=== PATIENT | female | born 1975 | race Caucasian/White ===

== ENCOUNTER 2016-08-17 14:14 | Emergency (ER) | payer SELFPAY ==
[2016-08-17] MEDS ORDERED: 0.9 % SODIUM CHLORIDE 1,000 ML BAG IV ONE (14:43)
[2016-08-17] MEDS ORDERED: ONDANSETRON HCL IV 4 MG/2 ML VIAL IV ONE (14:43)
[2016-08-17 15:01] LABS: BASO % 0.2 % (0-6); EOS % 3.6 % (0-6); GRAN % 74.4 % (47-80); HEMOGLOBIN 12.8 gm/dl (11.6-16.0); LYMPH % 17.7 % (16-45); MEAN CELL VOLUME 88.4 fl (81-97); MEAN CORPUSCULAR HEMOGLOBIN 29.8 pg (27-33); MEAN CORPUSCULAR HGB CONC 33.7 g/dl (32-36); MEAN PLATELET VOLUME 9.7 fl (7.4-10.4); MONO % 4.1 % (0-9); PLATELET COUNT 316 K/uL (130-400); RED CELL DISTRIBUTION WIDTH 12.7 % (11.5-14.5); WHITE BLOOD COUNT W/O DIFF 8.4 K/uL (4.2-12.2)
[2016-08-17] MEDS ORDERED: IPRATROPIUM/ALBUTEROL (0.5MG/3MG) NEB INH ONE (15:08)
[2016-08-17 15:11] LABS: ALB/GLOB RATIO 1.5 (1.1-1.8); ALBUMIN 4.3 gm/dL (3.5-5.0); ALKALINE PHOSPHATASE 55 U/L (38-126); ALT/SGPT 26 U/L (9-52); ANION GAP 14.6 (7-16); AST/SGOT 26 U/L (14-36); BILIRUBIN,TOTAL 0.45 mg/dL (0.2-1.3); BLOOD UREA NITROGEN 13 mg/dL (7-17); CARBON DIOXIDE 22.4 mmol/L (22-30); CREATININE 0.6 mg/dL (0.52-1.04); EST GLOMERULAR FILTRATION RATE > 60 ml/min; GLUCOSE,RANDOM 93 mg/dL (70-110); LIPASE 20 U/L (23-300); TOTAL PROTEIN 7.2 gm/dL (6.3-8.2)
--- NOTE | 2016-08-17 15:14 | Emergency Department Record ---
History of Present Illness - General Chief Complaint: Abdominal Pain Stated Complaint: VOMITING/BLOOD STOOL Time Seen by Provider: 08/17/16 14:42 Source: Patient, Family Mode of Arrival: Ambulatory Limitations: No limitations - History of Present Illness Initial Comments: 40 yo female presents with one week of nausea, cramps loose stools with some blood at times. She reports a history of colitis going back to 2008. She had a colonoscopy in 2008 in [place] that demonstrated colitis. She was on Asacol for about 2 years. She has not seen GI or treated with medications for several years. She has had poor appetite for the last week. She does not have a family doctor. She has been off her COPD medications for 2 months and reports wheezing recently as well. MD Complaint: Abdominal pain, Other (vomiting, loose stools, blood in the stools ) Onset/Timin -: Week(s) Location: Diffuse Radiation: Other (diffuse) Severity: Moderate Quality: Aching, Cramping Consistency: Constant Worsens With: Bowel movement Context: Sick contacts - Related Data Patient : No Home Medications Medication Instructions Recorded Confirmed Last Taken Albuterol Sulfate [Ventolin Hfa] 2 puff INH ASDIR 05/10/16 08/17/16 05/10/16 Beclomethasone Dipropionate [Qvar] 80 mcg INH DAILY 05/10/16 08/17/16 05/10/16 Previous Rx's Medication Instructions Recorded Hydrocodone/Acetaminophen [[place] 0.5 - 1 tab PO TID PRN #15 tab 08/17/16 5mg/325mg] Mesalamine [Asacol Hd] 800 mg PO TID #90 tablet. 08/17/16 Ondansetron [Zofran Odt] 4 mg PO Q8H #15 tab.raprenée 08/17/16 Prednisone [Prednisone 20Mg] 20 mg PO BID #10 tab 08/17/16 Allergies Allergy/AdvReac Type Severity Reaction Status Date / Time cephalexin monohydrate Allergy ANAPHYLAXIS Verified 08/17/16 14:35 [From Keflex] ciprofloxacin [From Cipro] Allergy ANAPHYLAXIS Verified 08/17/16 14:35 ciprofloxacin HCl Allergy ANAPHYLAXIS Verified 08/17/16 14:35 [From Cipro] clindamycin Allergy ANAPHYLAXIS Verified 08/17/16 14:35 codeine Allergy ANAPHYLAXIS Verified 08/17/16 14:35 morphine Allergy PT UNSURE Verified 08/17/16 14:35 OF REACTION NSAIDS (Non-Steroidal Allergy ANAPHYLAXIS Verified 08/17/16 14:35 Anti-Inflamma Penicillins Allergy ANAPHYLAXIS Verified 08/17/16 14:35 Sulfa (Sulfonamide Allergy ANAPHYLAXIS Verified 08/17/16 14:35 Antibiotics) Travel Screening - Travel/Exposure Within Last 30 Days Have you traveled within the last 30 days?: No - Travel/Exposure Within Last Year Have you traveled outside the [place] in the last year?: No - Additonal Travel Details Have you been exposed to anyone with a communicable illness?: No - Travel Symptoms Symptom Screening: None Review of Systems Constitutional: Reports: Malaise, Weakness. Denies: Chills, Fever Eyes: Denies: Eye discharge, Eye pain, Photophobia, Vision change ENT: Denies: Congestion, Epistaxis, Throat pain Respiratory: Reports: Cough, Wheezes. Denies: Dyspnea, Hemoptysis, Stridor Cardiovascular: Denies: Chest pain, Palpitations, Syncope Endocrine: Reports: Fatigue. Denies: Polydipsia, Polyuria Gastrointestinal: Reports: Abdominal pain, Diarrhea, Hematochezia, Nausea, Vomiting. Denies: Constipation, Hematemesis, Melena Genitourinary: Denies: Dysuria, Urgency Musculoskeletal: Denies: Arthralgia, Back pain, Myalgia, Neck pain Skin: Denies: Bruising, Change in color, Rash Neurological: Denies: Confusion, Headache, Numbness, Weakness Psychiatric: Denies: Anxiety Hematological/Lymphatic: Denies: Blood Clots, Easy bruising, Swollen glands Past Medical History - SOCIAL HISTORY Smoking Status: Former smoker Alcohol Use: None Drug Use: None - RESPIRATORY Hx Respiratory Disorders: Yes Hx Asthma: Yes Hx COPD: Yes - CARDIOVASCULAR Hx Cardio Disorders: No - NEURO Hx Neuro Disorders: No - GI Hx GI Disorders: Yes Comment:: colitis - Hx Genitourinary Disorders: No - ENDOCRINE Hx Endocrine Disorders: No - MUSCULOSKELETAL Hx Musculoskeletal Disorders: No - PSYCH Hx Psych Problems: No - HEMATOLOGY/ONCOLOGY Hx Hematology/Oncology Disorders: No Family Medical History Any Significant Family History?: Yes Physical Exam - General General Appearance: Alert, Oriented x3, Cooperative, No acute distress Limitations: No limitations - Head Head exam: Normal inspection - Eye Eye exam: Normal appearance, PERRL. negative: Conjunctival injection, Periorbital swelling, Scleral icterus - ENT ENT exam: Normal exam, Mucous membranes moist Ear exam: Normal external inspection Nasal Exam: Normal inspection Mouth exam: Normal external inspection Teeth exam: Normal inspection Throat exam: Normal inspection - Neck Neck exam: Normal inspection, Full ROM. negative: Tenderness - Respiratory Respiratory exam: Decreased breath sounds, Wheezes (mild expiratory) - Cardiovascular Cardiovascular Exam: Regular rate, Normal rhythm, Normal heart sounds Peripheral Pulses: 2+: Radial (R), Radial (L) - GI/Abdominal GI/Abdominal exam: Soft, Tenderness (mild soft diffuse tenderness). negative: Distended, Guarding - Rectal Rectal exam: Heme (-) stool, Normal inspection, Normal rectal tone. negative: Black stool, Bloody stool, Decreased rectal tone, Fecal impaction, Heme (+) stool, Hemorrhoids, Mass - exam: Deferred - Extremities Extremities exam: Normal inspection, Full ROM, Normal capillary refill. negative: Tenderness - Back Back exam: Reports: Normal inspection, Full ROM. Denies: Muscle spasm, Rash noted, Tenderness - Neurological Neurological exam: Alert, Normal gait, Oriented X3 - Psychiatric Psychiatric exam: Normal affect, Normal mood. negative: Agitated, Anxious - Skin Skin exam: Dry, Intact, Normal color, Warm Course Vital Signs 08/17/16 14:26 Temperature 99.1 F Pulse Rate 79 Respiratory 18 Rate Blood Pressure 142/70 Pulse Ox 97 - Reevaluation(s) Reevaluation #1: The labs were reviewed No acute changes of the CBC,CMP or Lipase 08/17/16 15:53 The patient was HEME negative The controls were positive. 08/17/16 17:49 Reevaluation #2: 08/17/16 17:55 Reevaluation #3: CT scan demonstrates thickening of the transverse to rectal colon suggesting colitis 08/17/16 18:43 Reevaluation #4: the patient is doing much better at this time no acute changes on the labs I discussed the CT scan with her She is in need of a new PCP and GI referral I GERDA Quiroz of family medicine. He will follow the patient up in the office this week. 08/17/16 19:21 Medical Decision Making - Lab Data Result diagrams: 08/17/16 14:53 08/17/16 14:53 Lab Results 08/17/16 Range/Units 14:53 WBC 8.4 (4.2-12.2) K/uL RBC 4.30 (3.80-5.40) M/uL Hgb 12.8 (11.6-16.0) gm/dl Hct 38.0 (35.0-47.0) % MCV 88.4 (81-97) fl MCH 29.8 (27-33) pg MCHC 33.7 (32-36) g/dl RDW 12.7 (11.5-14.5) % Plt Count 316 (130-400) K/uL MPV 9.7 (7.4-10.4) fl Gran % 74.4 (47-80) % Lymphocytes % 17.7 (16-45) % Monocytes % 4.1 (0-9) % Eosinophils % 3.6 (0-6) % Basophils % 0.2 (0-6) % Disposition Disposition: Discharge Clinical Impression: Colitis Abdominal pain Qualifiers: Abdominal location: unspecified location Qualified Code(s): R10.9 - Unspecified abdominal pain COPD (chronic obstructive pulmonary disease) Qualifiers: COPD type: unspecified COPD Qualified Code(s): J44.9 - Chronic obstructive pulmonary disease, unspecified Condition: (2) Stable Instructions: Colitis (ED), Ulcerative Colitis, Molder Meat (GEN) Additional Instructions: Call Dr Quiroz's office tomorrow to follow up on Return if you have fever, uncontrolled pain or any new concerns. Prescriptions: Mesalamine [Asacol Hd] 800 mg PO TID #90 tablet. Hydrocodone/Acetaminophen [Ven[place] 5mg/325mg] 0.5 - 1 tab PO TID PRN #15 tab PRN Reason: Pain - General Prednisone [Prednisone 20Mg] 20 mg PO BID #10 tab Ondansetron [Zofran Odt] 4 mg PO Q8H #15 tab.rapdis Referrals: Jarvis Quiroz D.O. [DOCTOR OF OSTEOPATH] - Forms: Patient Portal Access Time of Disposition: 19:26
[2016-08-17] MEDS ORDERED: HYDROMORPHONE HCL 1 MG/ML CPJ IVP ONE ×2 (16:06→18:07)
[2016-08-17 17:04] LABS: URINE APPEARANCE CLEAR; URINE BILIRUBIN NEGATIVE (NEGATIVE); URINE BLOOD NEGATIVE (NEGATIVE); URINE COLOR YELLOW; URINE GLUCOSE (UA) NEGATIVE (NEGATIVE); URINE KETONE 15 mg/dL (NEGATIVE); URINE LEUKOCYTE ESTERASE NEGATIVE (NEGATIVE); URINE NITRITE NEGATIVE (NEGATIVE); URINE PROTEIN NEGATIVE (NEGATIVE); URINE UROBILINOGEN 0.2 E.U./dL (0.20 - 1.00)
[2016-08-17] MEDS ORDERED: ONDANSETRON HCL IV 4 MG/2 ML VIAL IVP ONE (18:07)
--- NOTE | 2016-08-20 18:09 | CT SCAN REPORT ---
EXAM: CT SCAN OF THE ABDOMEN AND PELVIS WITH CONTRAST HISTORY: STOMACH PAIN WITH NAUSEA, VOMITING, AND DIARRHEA. BLOOD IN STOOL. HISTORY OF COLITIS. TECHNIQUE: Standard CT imaging of the abdomen and pelvis was performed with oral and intravenous contrast. 100 ml of Omnipaque 300 were administered. Comparison: None. FINDINGS: A calcified granuloma is present at the right lung base. Tiny noncalcified nodules are present at the left lung base, the largest of which measures 3 mm in maximal dimension. The lung bases are otherwise clear. The liver, gallbladder, biliary tree, pancreas, spleen, and adrenal glands are normal. There is a tiny hypodensity within the anterior cortex of the left kidney which is too small to characterize, but is suggestive of a cyst. The kidneys are otherwise unremarkable. There is no hydronephrosis or visible calculus. The aorta is normal in caliber. There is no retroperitoneal lymphadenopathy. The stomach and epigastrium appear normal. The colon is incompletely distended. There is mild wall thickening which is greatest within the transverse and rectosigmoid regions. The appearance suggests mild colitis. There is asymmetric wall thickening of the left sided of the rectum with mildly conspicuous lymph nodes within the perirectal fat. This appearance is nonspecific and may be neoplastic or inflammatory in nature. Careful follow-up is recommended to confirm resolution. The appendix is visualized and is normal. The small bowel loops are normal in caliber. There is trace free fluid within the pelvis. There are functional follicles within both ovaries. The largest is located within the right ovary and measures 1.6 cm in maximal diameter. The uterus and urinary bladder appear normal. There is a small fat containing umbilical hernia. There are no acute osseous abnormalities. IMPRESSION: 1. MILD NONSPECIFIC WALL THICKENING OF THE COLON FROM THE TRANSVERSE THROUGH THE RECTOSIGMOID REGIONS SUGGESTING MILD COLITIS. 2. THERE IS FOCAL ASYMMETRIC WALL THICKENING OF THE LEFT LATERAL ASPECT OF THE RECTUM WITH MILDLY CONSPICUOUS ASSOCIATED PERIRECTAL LYMPH NODES. THIS PATTERN IS NONSPECIFIC AND MAY BE INFLAMMATORY OR NEOPLASTIC IN NATURE. CAREFUL FOLLOW- UP IS RECOMMENDED TO CONFIRM RESOLUTION. IF INDICATED, THIS COULD BE FURTHER ASSESSED WITH COLONOSCOPY. 3. TRACE FLUID WITHIN THE PELVIS WHICH IS LIKELY PHYSIOLOGIC. 4. PROBABLE TINY LEFT RENAL CYST. 5. OLD GRANULOMATOUS DISEASE. 6. TINY NONCALCIFIED NODULES AT THE LEFT LUNG BASE ARE NONSPECIFIC, BUT LIKELY REPRESENT PREVIOUS GRANULOMATOUS DISEASE. NO FURTHER FOLLOW-UP OF THESE NODULES IS REQUIRED UNLESS THE PATIENT IS AT HIGH RISK FOR MALIGNANCY IN WHICH CASE A TWELVE MONTH FOLLOW-UP WOULD BE RECOMMENDED. 7. SMALL FAT CONTAINING UMBILICAL HERNIA. JOB NUMBER: [id number] [facility]
== END 2016-08-17 19:45 | disposition home or self-care (01) ==
LOC: ER 14:14
DX: K52.9 Noninfective gastroenteritis and colitis, unspecified (principal); R11.2 Nausea with vomiting, unspecified; R10.9 Unspecified abdominal pain; J44.9 Chronic obstructive pulmonary disease, unspecified; Z87.891 Personal history of nicotine dependence
CPT/HCPCS: 99284 ×2; 96376; 96374; 96375; 96361; 83690; 85025; 80053; 81003; 81025; 74177; 94640; Q9967; J2405; J1170; J7030

== ENCOUNTER 2016-08-31 05:48 | Emergency (ER) | payer SELFPAY ==
[2016-08-31] MEDS ORDERED: METHYLPREDNISOLONE PF 125MG/VIAL IVP ONE (05:58)
[2016-08-31] MEDS ORDERED: IPRATROPIUM/ALBUTEROL (0.5MG/3MG) NEB INH ONE (05:58)
[2016-08-31] MEDS ORDERED: ALBUTEROL SULFATE (0.083%) 2.5 MG/3 ML NEB INH ONE (06:00)
--- NOTE | 2016-08-31 06:04 | Emergency Department Record ---
History of Present Illness - General Chief Complaint: Asthma Stated Complaint: JOAN Time Seen by Provider: 08/31/16 05:58 Source: Patient, Family Mode of Arrival: Ambulatory Limitations: No limitations - History of Present Illness Initial Comments: 41 yo female presents with shortness of breath and wheezing over the last 2 days. She has history of asthma. She has recently run out of some of her medications. No fevers. No productive sputum. MD Complaint: "Asthma attack", Shortness of breath, Wheezing Onset/Timin -: Minutes(s) Asthma History: Childhood onset Severity: Severe Context: None known Associated Symptoms: None - Related Data Current Asthma Therapy: None Home Medications Medication Instructions Recorded Confirmed Last Taken Albuterol Sulfate [Ventolin Hfa] 2 puff INH ASDIR 05/10/16 08/17/16 05/10/16 Beclomethasone Dipropionate [Qvar] 80 mcg INH DAILY 05/10/16 08/17/16 05/10/16 Previous Rx's Medication Instructions Recorded Hydrocodone/Acetaminophen [[place] 0.5 - 1 tab PO TID PRN #15 tab 08/17/16 5mg/325mg] Mesalamine [Asacol Hd] 800 mg PO TID #90 tablet. 08/17/16 Ondansetron [Zofran Odt] 4 mg PO Q8H #15 tab.rapdis 08/17/16 Prednisone [Prednisone 20Mg] 20 mg PO BID #10 tab 08/17/16 Albuterol Sulfate [Proair Hfa] 1 - 2 puff IH .EVERY 4-6 HOURS PRN 08/31/16 #1 inhaler Beclomethasone Dipropionate [Qvar 8.7 gm IH DAILY #1 aer.w.adap 08/31/16 80 Mcg Inhaler] Dexamethasone 4 mg PO DAILY #3 tablet 08/31/16 Prednisone [Prednisone 20Mg] 20 mg PO BID #10 tab 08/31/16 Allergies Allergy/AdvReac Type Severity Reaction Status Date / Time cephalexin monohydrate Allergy ANAPHYLAXIS Verified 08/17/16 14:35 [From Keflex] ciprofloxacin [From Cipro] Allergy ANAPHYLAXIS Verified 08/17/16 14:35 ciprofloxacin HCl Allergy ANAPHYLAXIS Verified 08/17/16 14:35 [From Cipro] clindamycin Allergy ANAPHYLAXIS Verified 08/17/16 14:35 codeine Allergy ANAPHYLAXIS Verified 08/17/16 14:35 morphine Allergy PT UNSURE Verified 08/17/16 14:35 OF REACTION NSAIDS (Non-Steroidal Allergy ANAPHYLAXIS Verified 08/17/16 14:35 Anti-Inflamma Penicillins Allergy ANAPHYLAXIS Verified 08/17/16 14:35 Sulfa (Sulfonamide Allergy ANAPHYLAXIS Verified 08/17/16 14:35 Antibiotics) Travel Screening - Travel/Exposure Within Last 30 Days Have you traveled within the last 30 days?: No - Travel/Exposure Within Last Year Have you traveled outside the [place] in the last year?: No - Additonal Travel Details Have you been exposed to anyone with a communicable illness?: No - Travel Symptoms Symptom Screening: None Review of Systems Constitutional: Denies: Chills, Fever, Malaise, Weakness Eyes: Denies: Eye discharge, Eye pain, Photophobia, Vision change ENT: Denies: Congestion, Throat pain Respiratory: Reports: Cough, Dyspnea, Wheezes. Denies: Hemoptysis, Stridor Cardiovascular: Denies: Chest pain, Palpitations, Syncope Endocrine: Denies: Fatigue Gastrointestinal: Denies: Abdominal pain, Diarrhea, Nausea, Vomiting Genitourinary: Denies: Dysuria, Frequency, Hematuria Musculoskeletal: Denies: Arthralgia, Back pain, Myalgia, Neck pain Skin: Denies: Change in color Neurological: Denies: Headache Psychiatric: Denies: Anxiety Hematological/Lymphatic: Denies: Blood Clots, Easy bleeding, Easy bruising, Swollen glands Past Medical History - SOCIAL HISTORY Smoking Status: Former smoker Alcohol Use: None Drug Use: None - RESPIRATORY Hx Respiratory Disorders: Yes Hx Asthma: Yes Hx COPD: Yes - CARDIOVASCULAR Hx Cardio Disorders: No - NEURO Hx Neuro Disorders: No - GI Hx GI Disorders: Yes Comment:: colitis - Hx Genitourinary Disorders: No - ENDOCRINE Hx Endocrine Disorders: No - MUSCULOSKELETAL Hx Musculoskeletal Disorders: No - PSYCH Hx Psych Problems: No - HEMATOLOGY/ONCOLOGY Hx Hematology/Oncology Disorders: No Family Medical History Any Significant Family History?: No Physical Exam - General General Appearance: Alert, Oriented x3, Cooperative Limitations: No limitations - Head Head exam: Normal inspection - Eye Eye exam: Normal appearance. negative: Conjunctival injection, Periorbital swelling - ENT ENT exam: Normal exam, Mucous membranes moist, Normal external ear exam, Normal orophraynx Ear exam: Normal external inspection. negative: External canal tenderness Nasal Exam: Normal inspection. negative: Discharge, Sinus tenderness Mouth exam: Normal external inspection, Tongue normal Teeth exam: Normal inspection. negative: Dental caries Throat exam: Normal inspection. negative: Tonsillar erythema, Tonsillar exudate - Neck Neck exam: Normal inspection, Full ROM. negative: Lymphadenopathy, Tenderness - Respiratory Respiratory exam: Decreased breath sounds, Prolonged expiratory, Wheezes. negative: Respiratory distress - Cardiovascular Cardiovascular Exam: Regular rate, Normal rhythm, Normal heart sounds - GI/Abdominal GI/Abdominal exam: Soft. negative: Tenderness - Rectal Rectal exam: Deferred - exam: Deferred - Extremities Extremities exam: Normal inspection, Full ROM, Normal capillary refill. negative: Tenderness - Back Back exam: Reports: Normal inspection, Full ROM. Denies: Muscle spasm, Rash noted, Tenderness - Neurological Neurological exam: Alert, Normal gait, Oriented X3 - Psychiatric Psychiatric exam: Normal affect, Normal mood. negative: Agitated, Anxious - Skin Skin exam: Dry, Intact, Normal color, Warm Course Vital Signs 08/31/16 05:49 Pulse Rate 101 H Respiratory 28 H Rate Blood Pressure 118/85 Pulse Ox 92 L - Reevaluation(s) Reevaluation #1: The patient had some improve air exchange after the Duoneb with room air saturation of 97% Solumedrol ordered as well as a repeat Albuterol 08/31/16 06:03 Reevaluation #2: The patient remains improved after the second treatment with improved work breathing with room air saturations of 96% She is very relaxed with very good air exchange and minimal wheeze on forced exhalation. 08/31/16 06:23 08/31/16 06:32 Reevaluation #3: The patient is speaking in full sentences, very comfortable She was given an albuterol MDI in the ER She will be sent with Rx for Decadron, Albuterol and Qvar (she requested a change from prednisone due to side effects) 08/31/16 06:42 Disposition Disposition: Discharge Clinical Impression: Asthma exacerbation Disposition: Home, Self-Care Condition: (1) Good Instructions: Asthma (ED) Additional Instructions: Call the Family [facility] for close follow up and for a new family doctor Return if worse, short of breath or any new concerns. Prescriptions: Dexamethasone 4 mg PO DAILY #3 tablet Prednisone [Prednisone 20Mg] 20 mg PO BID #10 tab Albuterol Sulfate [Proair Hfa] 1 - 2 puff IH .EVERY 4-6 HOURS PRN #1 inhaler PRN Reason: Difficulty In Breathing Beclomethasone Dipropionate [Qvar 80 Mcg Inhaler] 8.7 gm IH DAILY #1 aer.w.adap Referrals: MADDIE SANZ M.D. [MEDICAL DOCTOR] - Forms: Patient Portal Access Time of Disposition: 06:43
[2016-08-31] MEDS ORDERED: ALBUTEROL HFA 8 GM INHALER INH PRN (06:36)
== END 2016-08-31 06:49 | disposition home or self-care (01) ==
LOC: ER 05:48
DX: J45.901 Unspecified asthma with (acute) exacerbation (principal); J44.9 Chronic obstructive pulmonary disease, unspecified; Z87.891 Personal history of nicotine dependence
CPT/HCPCS: 94640; 96374; 99284; J2930; J7613

== ENCOUNTER 2016-09-11 21:57 | Emergency (ER) | payer MEDICAID ==
[2016-09-11] MEDS ORDERED: METHYLPREDNISOLONE PF 125MG/VIAL IM ONE (22:27)
[2016-09-11] MEDS ORDERED: IPRATROPIUM/ALBUTEROL (0.5MG/3MG) NEB INH ONE (22:27)
--- NOTE | 2016-09-11 22:43 | Emergency Department Record ---
History of Present Illness - General Chief Complaint: Asthma Stated Complaint: ASTHMA Time Seen by Provider: 09/11/16 22:19 Source: Patient Mode of Arrival: Ambulatory Limitations: No limitations - History of Present Illness Initial Comments: pts asthma is acting up and she has ran out of her inhaler. Complaint: "Asthma attack" Asthma History: Childhood onset Severity: Mild Context: Exercise Associated Symptoms: None - Related Data Current Asthma Therapy: None Previous Rx's Medication Instructions Recorded Ondansetron [Zofran Odt] 4 mg PO Q8H #15 tab.rapdis 08/17/16 Allergies Allergy/AdvReac Type Severity Reaction Status Date / Time cephalexin monohydrate Allergy ANAPHYLAXIS Verified 09/11/16 22:07 [From Keflex] ciprofloxacin [From Cipro] Allergy ANAPHYLAXIS Verified 09/11/16 22:07 ciprofloxacin HCl Allergy ANAPHYLAXIS Verified 09/11/16 22:07 [From Cipro] clindamycin Allergy ANAPHYLAXIS Verified 09/11/16 22:07 codeine Allergy ANAPHYLAXIS Verified 09/11/16 22:07 morphine Allergy PT UNSURE Verified 09/11/16 22:07 OF REACTION NSAIDS (Non-Steroidal Allergy ANAPHYLAXIS Verified 09/11/16 22:07 Anti-Inflamma Penicillins Allergy ANAPHYLAXIS Verified 09/11/16 22:07 Sulfa (Sulfonamide Allergy ANAPHYLAXIS Verified 09/11/16 22:07 Antibiotics) Travel Screening - Travel/Exposure Within Last 30 Days Have you traveled within the last 30 days?: No - Travel/Exposure Within Last Year Have you traveled outside the [place] in the last year?: No - Additonal Travel Details Have you been exposed to anyone with a communicable illness?: No - Travel Symptoms Symptom Screening: None Review of Systems Reviewed: No additional complaints except as noted below Constitutional: Reports: As per HPI. Denies: Chills, Fever, Malaise, Night sweats, Weakness, Weight change Eyes: Reports: As per HPI. Denies: Eye discharge, Eye pain, Photophobia, Vision change ENT: Reports: As per HPI. Denies: Congestion, Dental pain, Ear pain, Epistaxis , Hearing loss, Throat pain Respiratory: Reports: As per HPI. Denies: Cough, Dyspnea, Hemoptysis, Stridor, Wheezes Cardiovascular: Reports: As per HPI. Denies: Arrhythmia, Chest pain, Dyspnea on exertion, Edema, Murmurs, Orthopnea, Palpitations, Paroxysmal nocturnal dyspnea, Rheumatic Fever, Syncope Endocrine: Reports: As per HPI. Denies: Fatigue, Heat or cold intolerance, Polydipsia, Polyuria Gastrointestinal: Reports: As per HPI. Denies: Abdominal pain, Constipation, Diarrhea, Hematemesis, Hematochezia, Melena, Nausea, Vomiting Genitourinary: Reports: As per HPI. Denies: Abnormal menses, Discharge, Dyspareunia, Dysuria, Frequency, Hematuria, Incontinence, Retention, Urgency Musculoskeletal: Reports: As per HPI. Denies: Arthralgia, Back pain, Gout, Joint swelling, Myalgia, Neck pain Skin: Reports: As per HPI. Denies: Bruising, Change in color, Change in hair/ nails, Lesions, Pruritus, Rash Neurological: Reports: As per HPI. Denies: Abnormal gait, Confusion, Headache, Numbness, Paresthesias, Seizure, Tingling, Tremors, Vertigo, Weakness Psychiatric: Reports: As per HPI. Denies: Anxiety, Auditory hallucinations, Depression, Homicidal thoughts, Suicidal thoughts, Visual hallucinations Hematological/Lymphatic: Reports: As per HPI. Denies: Anemia, Blood Clots, Easy bleeding, Easy bruising, Swollen glands Past Medical History - SOCIAL HISTORY Smoking Status: Former smoker Alcohol Use: Occassional Drug Use: None - RESPIRATORY Hx Respiratory Disorders: Yes Hx Asthma: Yes Hx COPD: Yes - CARDIOVASCULAR Hx Cardio Disorders: No - NEURO Hx Neuro Disorders: No - GI Hx GI Disorders: Yes Comment:: colitis - Hx Genitourinary Disorders: No - ENDOCRINE Hx Endocrine Disorders: No - MUSCULOSKELETAL Hx Musculoskeletal Disorders: No - PSYCH Hx Psych Problems: No - HEMATOLOGY/ONCOLOGY Hx Hematology/Oncology Disorders: No Family Medical History Any Significant Family History?: No Physical Exam - General General Appearance: Alert, Oriented x3, Cooperative, Mild distress - Head Head exam: Normal inspection - Eye Eye exam: Normal appearance, PERRL, EOMI Pupils: Normal accommodation - ENT ENT exam: Normal exam, Mucous membranes moist, Normal external ear exam, Normal orophraynx, TM's normal bilaterally Ear exam: Normal external inspection. negative: External canal tenderness Nasal Exam: Normal inspection. negative: Discharge, Sinus tenderness Mouth exam: Normal external inspection, Tongue normal Teeth exam: Normal inspection. negative: Dental caries Throat exam: Normal inspection. negative: Tonsillar erythema, Tonsillar exudate - Neck Neck exam: Normal inspection, Full ROM. negative: Tenderness - Respiratory Respiratory exam: Wheezes. negative: Respiratory distress - Cardiovascular Cardiovascular Exam: Regular rate, Normal rhythm, Normal heart sounds - GI/Abdominal GI/Abdominal exam: Soft, Normal bowel sounds. negative: Tenderness - Rectal Rectal exam: Deferred - exam: Deferred - Extremities Extremities exam: Normal inspection, Full ROM, Normal capillary refill. negative: Tenderness - Back Back exam: Reports: Normal inspection, Full ROM. Denies: Muscle spasm, Rash noted, Tenderness - Neurological Neurological exam: Alert, CN II-XII intact, Normal gait, Oriented X3 - Psychiatric Psychiatric exam: Normal affect, Normal mood - Skin Skin exam: Dry, Intact, Normal color, Warm Course Vital Signs 09/11/16 09/11/16 22:10 22:30 Pulse Rate 83 84 Respiratory 20 20 Rate Blood Pressure 121/88 Pulse Ox 97 Disposition Disposition: Discharge Clinical Impression: Asthma Qualifiers: Asthma severity: mild intermittent Asthma complication type: with acute exacerbation Qualified Code(s): J45.21 - Mild intermittent asthma with (acute) exacerbation Disposition: Home, Self-Care Condition: (1) Good Instructions: Asthma (ED) Additional Instructions: follow up with family doctor. return sooner if worse. Forms: Patient Portal Access
[2016-09-11] MEDS ORDERED: ALBUTEROL HFA 8 GM INHALER INH PRN (22:45)
== END 2016-09-11 22:54 | disposition home or self-care (01) ==
LOC: ER 21:57
DX: J45.21 Mild intermittent asthma with (acute) exacerbation (principal)
CPT/HCPCS: 94640; 96372; 99283; J2930

== ENCOUNTER 2016-10-29 00:11 | Emergency (ER) | payer SELFPAY ==
[2016-10-29] MEDS ORDERED: DEXAMETHASONE 4 MG/ML 1ML VIAL PO ONE (00:49)
[2016-10-29] MEDS ORDERED: IPRATROPIUM/ALBUTEROL (0.5MG/3MG) NEB INH ONE (00:49)
[2016-10-29 01:34] LABS: BASO % 0.8 % (0-6); EOS % 3.9 % (0-6); HEMATOCRIT 37.8 % (35.0-47.0); HEMOGLOBIN 12.3 gm/dl (11.6-16.0); LYMPH % 32.3 % (16-45); MEAN CELL VOLUME 89.4 fl (81-97); MEAN CORPUSCULAR HEMOGLOBIN 29.1 pg (27-33); MEAN CORPUSCULAR HGB CONC 32.5 g/dl (32-36); MEAN PLATELET VOLUME 9.5 fl (7.4-10.4); PLATELET COUNT 374 K/uL (130-400); RED BLOOD COUNT 4.23 M/uL (3.80-5.40); RED CELL DISTRIBUTION WIDTH 12.9 % (11.5-14.5); WHITE BLOOD COUNT W/O DIFF 5.1 K/uL (4.2-12.2)
[2016-10-29 01:39] LABS: STREP A SCREEN NEGATIVE (NEGATIVE)
--- NOTE | 2016-10-29 01:45 | Emergency Department Record ---
History of Present Illness - General Chief Complaint: Cough Stated Complaint: COUGH/SWOLLEN GLANDS/HOARSNESS Time Seen by Provider: 10/29/16 00:41 Source: Patient Mode of Arrival: Ambulatory Limitations: No limitations - History of Present Illness Initial Comments: pt has a sore throat and a cough and is losing her voice. she also has body aches MD Complaint: Cough, Nasal congestion, Rhinorrhea, Sore throat Onset/Timin -: Days(s) Severity: Moderate Severity scale (1-10): 9 Consistency: Constant Worsens With: Nothing Context: Sick contacts Associated Symptoms: Cough, Sore throat - Related Data Home Medications Medication Instructions Recorded Confirmed Last Taken Albuterol Sulfate [Proair Hfa] 2 puff INH Q4HR 10/29/16 10/29/16 Unknown Beclomethasone Dipropionate [Qvar] 2 puff .ROUTE BID 10/29/16 10/29/16 Unknown Previous Rx's Medication Instructions Recorded Azithromycin [Zithromax] 250 mg PO DAILY #4 tab 10/29/16 Allergies Allergy/AdvReac Type Severity Reaction Status Date / Time cephalexin monohydrate Allergy ANAPHYLAXIS Verified 09/11/16 22:07 [From Keflex] ciprofloxacin [From Cipro] Allergy ANAPHYLAXIS Verified 09/11/16 22:07 ciprofloxacin HCl Allergy ANAPHYLAXIS Verified 09/11/16 22:07 [From Cipro] clindamycin Allergy ANAPHYLAXIS Verified 09/11/16 22:07 codeine Allergy ANAPHYLAXIS Verified 09/11/16 22:07 meperidine HCl [From Demerol] Allergy PT UNSURE Verified 10/29/16 00:23 OF REACTION morphine Allergy PT UNSURE Verified 09/11/16 22:07 OF REACTION NSAIDS (Non-Steroidal Allergy ANAPHYLAXIS Verified 09/11/16 22:07 Anti-Inflamma Penicillins Allergy ANAPHYLAXIS Verified 09/11/16 22:07 Sulfa (Sulfonamide Allergy ANAPHYLAXIS Verified 09/11/16 22:07 Antibiotics) Travel Screening - Travel/Exposure Within Last 30 Days Have you traveled within the last 30 days?: No - Travel/Exposure Within Last Year Have you traveled outside the [place] in the last year?: No - Additonal Travel Details Have you been exposed to anyone with a communicable illness?: No - Travel Symptoms Symptom Screening: None Review of Systems Reviewed: No additional complaints except as noted below Constitutional: Reports: As per HPI. Denies: Chills, Fever, Malaise, Night sweats, Weakness, Weight change Eyes: Reports: As per HPI. Denies: Eye discharge, Eye pain, Photophobia, Vision change ENT: Reports: As per HPI. Denies: Congestion, Dental pain, Ear pain, Epistaxis , Hearing loss, Throat pain Respiratory: Reports: As per HPI. Denies: Cough, Dyspnea, Hemoptysis, Stridor, Wheezes Cardiovascular: Reports: As per HPI. Denies: Arrhythmia, Chest pain, Dyspnea on exertion, Edema, Murmurs, Orthopnea, Palpitations, Paroxysmal nocturnal dyspnea, Rheumatic Fever, Syncope Endocrine: Reports: As per HPI. Denies: Fatigue, Heat or cold intolerance, Polydipsia, Polyuria Gastrointestinal: Reports: As per HPI. Denies: Abdominal pain, Constipation, Diarrhea, Hematemesis, Hematochezia, Melena, Nausea, Vomiting Genitourinary: Reports: As per HPI. Denies: Abnormal menses, Discharge, Dyspareunia, Dysuria, Frequency, Hematuria, Incontinence, Retention, Urgency Musculoskeletal: Reports: As per HPI. Denies: Arthralgia, Back pain, Gout, Joint swelling, Myalgia, Neck pain Skin: Reports: As per HPI. Denies: Bruising, Change in color, Change in hair/ nails, Lesions, Pruritus, Rash Neurological: Reports: As per HPI. Denies: Abnormal gait, Confusion, Headache, Numbness, Paresthesias, Seizure, Tingling, Tremors, Vertigo, Weakness Psychiatric: Reports: As per HPI. Denies: Anxiety, Auditory hallucinations, Depression, Homicidal thoughts, Suicidal thoughts, Visual hallucinations Hematological/Lymphatic: Reports: As per HPI. Denies: Anemia, Blood Clots, Easy bleeding, Easy bruising, Swollen glands Past Medical History - SOCIAL HISTORY Smoking Status: Former smoker Alcohol Use: None Drug Use: None - RESPIRATORY Hx Respiratory Disorders: Yes Hx Asthma: Yes Hx COPD: Yes - CARDIOVASCULAR Hx Cardio Disorders: No - NEURO Hx Neuro Disorders: No - GI Hx GI Disorders: Yes Comment:: colitis - Hx Genitourinary Disorders: No - ENDOCRINE Hx Endocrine Disorders: No - MUSCULOSKELETAL Hx Musculoskeletal Disorders: No - PSYCH Hx Psych Problems: No - HEMATOLOGY/ONCOLOGY Hx Hematology/Oncology Disorders: No Family Medical History Any Significant Family History?: No Physical Exam - General General Appearance: Alert, Oriented x3, Cooperative, Mild distress - Head Head exam: Normal inspection - Eye Eye exam: Normal appearance, PERRL, EOMI Pupils: Normal accommodation - ENT ENT exam: Normal exam, Mucous membranes moist, Normal external ear exam, Normal orophraynx, TM's normal bilaterally Ear exam: Normal external inspection. negative: External canal tenderness Nasal Exam: Normal inspection. negative: Discharge, Sinus tenderness Mouth exam: Normal external inspection, Tongue normal Teeth exam: Normal inspection. negative: Dental caries Throat exam: Tonsillar erythema. negative: Tonsillar exudate - Neck Neck exam: Normal inspection, Full ROM. negative: Tenderness - Respiratory Respiratory exam: Wheezes. negative: Respiratory distress - Cardiovascular Cardiovascular Exam: Regular rate, Normal rhythm, Normal heart sounds - GI/Abdominal GI/Abdominal exam: Soft, Normal bowel sounds. negative: Tenderness - Rectal Rectal exam: Deferred - exam: Deferred - Extremities Extremities exam: Normal inspection, Full ROM, Normal capillary refill. negative: Tenderness - Back Back exam: Reports: Normal inspection, Full ROM. Denies: Muscle spasm, Rash noted, Tenderness - Neurological Neurological exam: Alert, CN II-XII intact, Normal gait, Oriented X3 - Psychiatric Psychiatric exam: Normal affect, Normal mood - Skin Skin exam: Dry, Intact, Normal color, Warm Course Vital Signs 10/29/16 10/29/16 10/29/16 00:18 00:23 01:28 Temperature 98.5 F 98.5 F Pulse Rate 62 92 H Pulse Rate [ 89 Pulse Ox Probe] Respiratory 20 18 24 Rate Blood Pressure 122/89 Blood Pressure 122/89 [Left Arm] Pulse Ox 95 96 Medical Decision Making - Lab Data Result diagrams: 10/29/16 01:35 Lab Results 10/29/16 10/29/16 Range/Units 01:35 01:39 WBC 5.1 (4.2-12.2) K/uL RBC 4.23 (3.80-5.40) M/uL Hgb 12.3 (11.6-16.0) gm/dl Hct 37.8 (35.0-47.0) % MCV 89.4 (81-97) fl MCH 29.1 (27-33) pg MCHC 32.5 (32-36) g/dl RDW 12.9 (11.5-14.5) % Plt Count 374 (130-400) K/uL MPV 9.5 (7.4-10.4) fl Gran % 50.0 (47-80) % Lymphocytes % 32.3 (16-45) % Monocytes % 13.0 H (0-9) % Eosinophils % 3.9 (0-6) % Basophils % 0.8 (0-6) % Group A Strep Screen Negative (NEGATIVE) Disposition Disposition: Discharge Clinical Impression: Asthma exacerbation Pneumonia Qualifiers: Pneumonia type: due to unspecified organism Laterality: left Lung location: lower lobe of lung Qualified Code(s): J18.1 - Lobar pneumonia, unspecified organism Disposition: Home, Self-Care Condition: (1) Good Instructions: Community-acquired Pneumonia (ED), Asthma (ED) Additional Instructions: follow up with family doctor. return sooner if worse. push fluids. tylenol and motrin as needed for fever. Prescriptions: Azithromycin [Zithromax] 250 mg PO DAILY #4 tab Forms: Patient Portal Access
[2016-10-29 01:46] LABS: INFLUENZA A NEGATIVE (NEGATIVE); INFLUENZA B NEGATIVE (NEGATIVE)
[2016-10-29] MEDS ORDERED: AZITHROMYCIN 500 MG TABLET PO ONE (01:48)
== END 2016-10-29 02:07 | disposition home or self-care (01) ==
LOC: ER 00:11
DX: J18.1 Lobar pneumonia, unspecified organism (principal); J45.901 Unspecified asthma with (acute) exacerbation; Z87.891 Personal history of nicotine dependence
CPT/HCPCS: 71020; 85025; 87400; 87880; 94640; 99283; 99284

== ENCOUNTER 2016-11-13 11:24 | Emergency (ER) | payer SELFPAY ==
--- NOTE | 2016-11-13 12:34 | Emergency Department Record ---
History of Present Illness - General Chief complaint: Vomiting Stated complaint: VOMITING Time Seen by Provider: 11/13/16 12:33 Source: Patient Mode of Arrival: Ambulatory Limitations: No limitations - History of Present Illness Initial comments: The patient is here due to a 6 hour hx of nausea and vomiting 4 times in the last 6 hours. 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 The patient does have a mild cough but denies any CP, SOB, JOAN or SALCEDO but does feel like her tongue is thick like she may be having an allergic rxn. complaint: Nausea, Vomiting Onset/Timin -: Hour(s) Improves with: None Worsens with: None Context: Other Associated Symptoms: Other - Related Data Home Medications Medication Instructions Recorded Confirmed Last Taken Albuterol Sulfate [Proair Hfa] 2 puff INH Q4HR 10/29/16 11/13/16 11/13/16 Beclomethasone Dipropionate [Qvar] 2 puff .ROUTE BID 10/29/16 11/13/16 11/12/16 Previous Rx's Medication Instructions Recorded Beclomethasone Dipropionate [Qvar 8.7 gm IH BID #1 aer.w.adap 11/13/16 80 Mcg Inhaler] Ondansetron [Zofran Odt] 4 mg SL .Q4-6H PRN #12 tab.rapdis 11/13/16 Allergies Allergy/AdvReac Type Severity Reaction Status Date / Time cephalexin monohydrate Allergy ANAPHYLAXIS Verified 09/11/16 22:07 [From Keflex] ciprofloxacin [From Cipro] Allergy ANAPHYLAXIS Verified 09/11/16 22:07 ciprofloxacin HCl Allergy ANAPHYLAXIS Verified 09/11/16 22:07 [From Cipro] clindamycin Allergy ANAPHYLAXIS Verified 09/11/16 22:07 codeine Allergy ANAPHYLAXIS Verified 09/11/16 22:07 meperidine HCl [From Demerol] Allergy PT UNSURE Verified 10/29/16 00:23 OF REACTION morphine Allergy PT UNSURE Verified 09/11/16 22:07 OF REACTION NSAIDS (Non-Steroidal Allergy ANAPHYLAXIS Verified 09/11/16 22:07 Anti-Inflamma Penicillins Allergy ANAPHYLAXIS Verified 09/11/16 22:07 Sulfa (Sulfonamide Allergy ANAPHYLAXIS Verified 09/11/16 22:07 Antibiotics) Travel Screening - Travel/Exposure Within Last 30 Days Have you traveled within the last 30 days?: No - Travel/Exposure Within Last Year Have you traveled outside the [place] in the last year?: No - Additonal Travel Details Have you been exposed to anyone with a communicable illness?: No - Travel Symptoms Symptom Screening: None Review of Systems Constitutional: Denies: Chills, Fever, Malaise Eyes: Denies: Eye discharge ENT: Reports: Congestion Respiratory: Reports: Cough, Dyspnea, Wheezes. Denies: Hemoptysis, Stridor Cardiovascular: Denies: Arrhythmia, Chest pain Past Medical History - SOCIAL HISTORY Smoking Status: Former smoker Alcohol Use: None Drug Use: None - RESPIRATORY Hx Respiratory Disorders: Yes Hx Asthma: Yes Hx COPD: Yes - CARDIOVASCULAR Hx Cardio Disorders: No - NEURO Hx Neuro Disorders: No - GI Hx GI Disorders: Yes Comment:: colitis - Hx Genitourinary Disorders: No - ENDOCRINE Hx Endocrine Disorders: No - MUSCULOSKELETAL Hx Musculoskeletal Disorders: No - PSYCH Hx Psych Problems: No - HEMATOLOGY/ONCOLOGY Hx Hematology/Oncology Disorders: No Family Medical History Any Significant Family History?: No Hx Heart Disease: Brother/Sister Hx Resp Disorders: Father Hx Stroke: Father Physical Exam - General General Appearance: Alert, Oriented x3, Cooperative, No acute distress - Head Head exam: Atraumatic, Normocephalic, Normal inspection - Eye Eye exam: Normal appearance, PERRL - ENT ENT exam: Normal exam, Mucous membranes moist, Normal external ear exam, Normal orophraynx, TM's normal bilaterally Mouth exam: Tongue normal. negative: Muffled voice, Tongue elevation Throat exam: Normal inspection. negative: Tonsillar erythema, Tonsillar exudate - Neck Neck exam: Normal inspection, Full ROM. negative: Lymphadenopathy, Meningismus , Tenderness - Respiratory Respiratory exam: Wheezes (mild in the lower lobes.). negative: Normal lung sounds bilaterally, Prolonged expiratory, Respiratory distress, Rhonchi, Stridor - Cardiovascular Cardiovascular Exam: Regular rate, Normal rhythm, Normal heart sounds - GI/Abdominal GI/Abdominal exam: Soft, Normal bowel sounds. negative: Distended, Rebound, Rigid, Tenderness - Extremities Extremities exam: Normal inspection, Full ROM, Normal capillary refill. negative: Tenderness - Neurological Neurological exam: Alert, Normal gait. negative: Abnormal gait, Motor sensory deficit Course Vital Signs 11/13/16 12:15 Temperature 97.9 F Pulse Rate 84 Respiratory 24 Rate Blood Pressure 113/75 Pulse Ox 97 - Reevaluation(s) Reevaluation #1: The patient is doing much better at this time. Her nausea is improved and she denies any AP or JOAN presently. On exam her abdomen is very soft and nontender in all 4 quads. I explained to her that her lab work is all WNL's. She is to see her PCP next week for recheck and to return to the ER if worse. 11/13/16 14:05 Medical Decision Making - Data Complexity MDM Data: Labs Ordered and/or Reviewed, X-Ray Ordered and/or Reviewed - Lab Data Result diagrams: 11/13/16 13:25 11/13/16 13:25 - Radiology Data Radiology results: Report reviewed (CXR: Neg) Disposition Disposition: Discharge Clinical Impression: Asthma exacerbation Disposition: Home, Self-Care Condition: (1) Good Instructions: Acute Nausea and Vomiting (ED) Additional Instructions: Please see your PCP next week for recheck. Continue your regular medicines and use the Zofran for nausea. Please return to the ER for any increased cough, fever, or any abdominal pain or vomiting. Prescriptions: Beclomethasone Dipropionate [Qvar 80 Mcg Inhaler] 8.7 gm IH BID #1 aer.w.adap Ondansetron [Zofran Odt] 4 mg SL .Q4-6H PRN #12 tab.rapdis PRN Reason: Nausea Forms: Patient Portal Access Time of Disposition: 14:10
[2016-11-13] MEDS ORDERED: IPRATROPIUM/ALBUTEROL (0.5MG/3MG) NEB INH ONE (12:42)
[2016-11-13] MEDS ORDERED: DEXAMETHASONE SOD PHOSPHATE 10MG/ML VIAL PO ONE (12:43)
[2016-11-13] MEDS ORDERED: 0.9 % SODIUM CHLORIDE 1,000 ML BAG IV ONE (12:43)
[2016-11-13 13:35] LABS: BASO % 0.3 % (0-6); EOS % 2.7 % (0-6); HEMOGLOBIN 14.5 gm/dl (11.6-16.0); LYMPH % 21.9 % (16-45); MEAN CELL VOLUME 87.4 fl (81-97); MEAN CORPUSCULAR HEMOGLOBIN 29.5 pg (27-33); MEAN CORPUSCULAR HGB CONC 33.7 g/dl (32-36); MEAN PLATELET VOLUME 9.7 fl (7.4-10.4); MONO % 5.1 % (0-9); PLATELET COUNT 372 K/uL (130-400); RED BLOOD COUNT 4.92 M/uL (3.80-5.40); RED CELL DISTRIBUTION WIDTH 13.4 % (11.5-14.5); WHITE BLOOD COUNT W/O DIFF 9.2 K/uL (4.2-12.2)
[2016-11-13] MEDS ORDERED: ONDANSETRON HCL IV 4 MG/2 ML VIAL IVP ONE (13:48)
[2016-11-13 13:59] LABS: URINE APPEARANCE CLEAR; URINE BILIRUBIN NEGATIVE (NEGATIVE); URINE BLOOD NEGATIVE (NEGATIVE); URINE COLOR YELLOW; URINE GLUCOSE (UA) NEGATIVE (NEGATIVE); URINE KETONE NEGATIVE (NEGATIVE); URINE LEUKOCYTE ESTERASE NEGATIVE (NEGATIVE); URINE NITRITE NEGATIVE (NEGATIVE); URINE PROTEIN NEGATIVE (NEGATIVE); URINE UROBILINOGEN 0.2 E.U./dL (0.20 - 1.00)
[2016-11-13 14:00] LABS: ALB/GLOB RATIO 1.4 (1.1-1.8); ALBUMIN 3.7 gm/dL (3.5-5.0); ALKALINE PHOSPHATASE 42 U/L (38-126); ALT/SGPT 22 U/L (9-52); ANION GAP 10.1 (7-16); AST/SGOT 14 U/L (14-36); BILIRUBIN,TOTAL 0.51 mg/dL (0.2-1.3); BLOOD UREA NITROGEN 14 mg/dL (7-17); CARBON DIOXIDE 21.9 mmol/L (22-30); CREATININE 0.6 mg/dL (0.52-1.04); EST GLOMERULAR FILTRATION RATE > 60 ml/min; GLUCOSE,RANDOM 97 mg/dL (70-110); LIPASE 21 U/L (23-300); TOTAL PROTEIN 6.3 gm/dL (6.3-8.2)
[2016-11-13 14:01] LABS: HCG,QUALITATIVE URINE NEGATIVE (NEGATIVE)
== END 2016-11-13 14:21 | disposition home or self-care (01) ==
LOC: ER 11:24
DX: J45.901 Unspecified asthma with (acute) exacerbation (principal); R11.2 Nausea with vomiting, unspecified; Z87.891 Personal history of nicotine dependence
CPT/HCPCS: 99284 ×2; 96374; 83690; 85025; 80053; 81003; 81025; 71020; 94640; J2405; J1100; J7030

== ENCOUNTER 2016-11-21 00:16 | Emergency (ER) | payer SELFPAY ==
--- NOTE | 2016-11-21 00:46 | Emergency Department Record ---
History of Present Illness - General Chief Complaint: Neck Injury/Pain Stated Complaint: NECK PAIN Time Seen by Provider: 11/21/16 00:43 Source: Patient Mode of Arrival: Ambulatory Limitations: No limitations - History of Present Illness Initial Comments: 41 yo female presents to ED with a CC of right sided neck pain that radiates down her right upper extremity worsening for the past 1 month. 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 Patient also reports that she and her SO are moving to [place] this weekend and have been packing throughout the week. Patient denies numbness or weakness to the UE , but does report lower extremity edema bilaterally. MD Complaint: Neck pain Onset/Timin -: Days(s) Place: Home Radiation: Head, Right lateral, Right shoulder, Right upper extremity, Upper back Severity scale (1-10): >10 Quality: Aching Consistency: Constant Improves With: None Worsens With: Medication, Movement of extremity, Movement of neck Context: Lifting Treatments Prior to Arrival: None - Related Data Home Medications Medication Instructions Recorded Confirmed Last Taken Albuterol Sulfate [Proair Hfa] 2 puff INH Q4HR 10/29/16 11/21/16 11/20/16 Previous Rx's Medication Instructions Recorded Diazepam [Valium] 5 mg PO Q8H #9 tab 11/21/16 Allergies Allergy/AdvReac Type Severity Reaction Status Date / Time cephalexin monohydrate Allergy ANAPHYLAXIS Verified 09/11/16 22:07 [From Keflex] ciprofloxacin [From Cipro] Allergy ANAPHYLAXIS Verified 09/11/16 22:07 ciprofloxacin HCl Allergy ANAPHYLAXIS Verified 09/11/16 22:07 [From Cipro] clindamycin Allergy ANAPHYLAXIS Verified 09/11/16 22:07 codeine Allergy ANAPHYLAXIS Verified 09/11/16 22:07 meperidine HCl [From Demerol] Allergy PT UNSURE Verified 10/29/16 00:23 OF REACTION morphine Allergy PT UNSURE Verified 09/11/16 22:07 OF REACTION NSAIDS (Non-Steroidal Allergy ANAPHYLAXIS Verified 09/11/16 22:07 Anti-Inflamma Penicillins Allergy ANAPHYLAXIS Verified 09/11/16 22:07 Sulfa (Sulfonamide Allergy ANAPHYLAXIS Verified 09/11/16 22:07 Antibiotics) Travel Screening - Travel/Exposure Within Last 30 Days Have you traveled within the last 30 days?: No - Travel Symptoms Symptom Screening: None Review of Systems Constitutional: Denies: Chills, Fever, Malaise, Night sweats Eyes: Denies: Eye discharge, Eye pain ENT: Denies: Congestion, Ear pain, Epistaxis Respiratory: Denies: Cough, Dyspnea Cardiovascular: Denies: Chest pain, Dyspnea on exertion Endocrine: Denies: Fatigue, Heat or cold intolerance Gastrointestinal: Denies: Abdominal pain, Nausea, Vomiting Genitourinary: Denies: Incontinence, Retention Musculoskeletal: Reports: Myalgia, Neck pain. Denies: Arthralgia, Back pain, Gout, Joint swelling Skin: Denies: Bruising, Change in color Neurological: Denies: Abnormal gait, Confusion, Headache, Tingling, Tremors Psychiatric: Denies: Anxiety Hematological/Lymphatic: Denies: Anemia, Blood Clots Past Medical History - SOCIAL HISTORY Smoking Status: Former smoker Alcohol Use: None Drug Use: None - RESPIRATORY Hx Respiratory Disorders: Yes Hx Asthma: Yes Hx COPD: Yes - CARDIOVASCULAR Hx Cardio Disorders: No - NEURO Hx Neuro Disorders: No - GI Hx GI Disorders: Yes Comment:: colitis - Hx Genitourinary Disorders: No - ENDOCRINE Hx Endocrine Disorders: No - MUSCULOSKELETAL Hx Musculoskeletal Disorders: No - PSYCH Hx Psych Problems: No - HEMATOLOGY/ONCOLOGY Hx Hematology/Oncology Disorders: No Family Medical History Any Significant Family History?: Yes Hx Heart Disease: Brother/Sister Hx Resp Disorders: Father Hx Stroke: Father Physical Exam - General General Appearance: Alert, Oriented x3, Cooperative, No acute distress Limitations: No limitations - Head Head exam: Atraumatic, Normocephalic, Normal inspection Head exam detail: negative: Abrasion, Contusion, Arshad's sign, General tenderness, Hematoma, Laceration - Eye Eye exam: Normal appearance. negative: Conjunctival injection, Periorbital swelling, Periorbital tenderness, Scleral icterus - ENT Ear exam: negative: Auricular hematoma, Auricular trauma Nasal Exam: negative: Active bleeding, Discharge, Dried blood, Foreign body, Sinus tenderness Mouth exam: negative: Drooling, Laceration, Muffled voice, Tongue elevation - Neck Neck exam: Tenderness, Other (TTP along the right paracervical muscles as well as the psoterior trapezius mucles with light palpation). negative: Lymphadenopathy, Meningismus - Respiratory Respiratory exam: Wheezes (mild, bilateral). negative: Rhonchi, Stridor - Cardiovascular Cardiovascular Exam: Regular rate, Normal rhythm, Normal heart sounds Peripheral Pulses: 3+: Radial (R) - GI/Abdominal GI/Abdominal exam: Soft. negative: Distended, Rebound, Rigid, Tenderness - Rectal Rectal exam: Deferred - exam: Deferred - Extremities Extremities exam: Normal inspection, Other (no appreciable edema on examination) . 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 negative: Motor sensory deficit - Psychiatric Psychiatric exam: Normal affect, Normal mood - Skin Skin exam: Normal color. negative: Abrasion Type of lesion: negative: abrasion Course Vital Signs 11/21/16 00:23 Temperature 98.1 F Pulse Rate 81 Respiratory 18 Rate Blood Pressure 120/79 Pulse Ox 99 - Reevaluation(s) Reevaluation #1: 11/21/16 00:52 Patient's symptoms are subacute in nature, and examination is c/w musculo- skeletal pain based the level of tenderness with palpation of the para-cervical and trapezius muscles. 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 Will trial Valium for her symptoms with instructions to follow-up with a PCP in [place] next week. Disposition Disposition: Discharge Clinical Impression: Cervical strain, acute Qualifiers: Encounter type: initial encounter Qualified Code(s): S16.1XXA - Strain of muscle, fascia and tendon at neck level, initial encounter Disposition: Home, Self-Care Condition: (2) Stable Instructions: Cervical Sprain (ED) Additional Instructions: Return to ED if your symptoms worsen or if you have any concerns. Valium as directed. Follow-up with a primary care provider next week in [place] following your move. Prescriptions: Diazepam [Valium] 5 mg PO Q8H #9 tab Forms: Patient Portal Access Time of Disposition: 00:45
[2016-11-21] MEDS: DIAZEPAM 5 MG TABLET PO ONE (00:48)
== END 2016-11-21 01:00 | disposition home or self-care (01) ==
LOC: ER 00:16
DX: S16.1XXA Strain of muscle, fascia and tendon at neck level, initial encounter (principal); X58.XXXA Exposure to other specified factors, initial encounter
CPT/HCPCS: 99283